=== PATIENT | female | born 1940 | race Caucasian/White ===

== ENCOUNTER 2018-10-16 11:53 | Emergency (ER) | payer OTHER ==
[~2018-10-16] VITALS: Ht 144.8 cm; Wt 54.0 kg
[2018-10-16] MEDS ORDERED: HYDRALAZINE 10M10 MG PO (11:58)
[2018-10-16] MEDS ORDERED: LEVOXYL75 MCG PO (11:59)
[2018-10-16] MEDS ORDERED: GLIPIZIDE 10 MG10 MG PO (11:59)
[2018-10-16 14:05] LABS: HEMATOCRIT 36.4 % (37.0-47.0); HEMOGLOBIN 12.1 gm/dL (12.0-15.0); MCHC 33.3 g/dL (28.0-37.0); MCV 96.1 fL (80.0-100.0); MPV 8.4 fl. (7.2-11.1); NUCLEATED RBCS 0 /100WBC; PLATELET COUNT* 262 thou/uL (150-400); RBC 3.78 mil/uL (4.20-5.00); RDW-CV 13.4 % (10.5-14.5); WBC 12.3 thou/uL (4.0-11.0)
[2018-10-16 14:19] LABS: ALBUMIN 3.4 g/dL (3.4-5.0); CALCIUM 9.1 mg/dL (8.5-10.1); CREATININE 1.6 mg/dL (0.6-1.3); POTASSIUM 4.6 mmol/L (3.5-5.1); TOTAL BILIRUBIN 0.4 mg/dL (<0.1-1.0); TOTAL PROTEIN 7.3 g/dL (6.4-8.2)
[2018-10-16 14:21] LABS: ABSOLUTE NEUTROPHILS 11.3 thou/uL (1.6-8.1); ATYPICAL LYMPHS 3 %; PLATELET ESTIMATE ADEQUATE
[2018-10-16 16:04] VITALS: BP 176/79
== END 2018-10-16 16:04 | disposition short-term general hospital (02) ==
LOC: M.ERS 11:53
PROVIDERS: Nurse Practitioner Family
DX: S72.092A Other fracture of head and neck of left femur, initial encounter for closed fracture (principal); I10 Essential (primary) hypertension; E11.9 Type 2 diabetes mellitus without complications; Z90.12 Acquired absence of left breast and nipple; Z88.0 Allergy status to penicillin; Z88.8 Allergy status to other drugs, medicaments and biological substances; W01.0XXA Fall on same level from slipping, tripping and stumbling without subsequent striking against object, initial encounter; Y93.89 Activity, other specified; Y92.89 Other specified places as the place of occurrence of the external cause; Y99.8 Other external cause status